=== PATIENT | female | born 1970 | race African-American/Black ===

== ENCOUNTER 2016-07-15 00:06 | Emergency (ER) | payer OTHER, MEDICAID ==
[~2016-07-15] VITALS: Ht 157.5 cm; Wt 63.0 kg
[~2016-07-15 00:06] MED LIST: ACET-3161 PO; DOCU-138 PO; FERR-63 PO; IBUP-779 PO; LABE200T28 PO; LOSA1TAB37 PO
[2016-07-15 00:15] VITALS: BP 120/67
== END 2016-07-15 03:10 | disposition left against medical advice (07) ==
LOC: ER 00:06
DX: R53.1 Weakness (principal); J45.909 Unspecified asthma, uncomplicated; I10 Essential (primary) hypertension; F17.200 Nicotine dependence, unspecified, uncomplicated; Z86.73 Personal history of transient ischemic attack (TIA), and cerebral infarction without residual deficits; Z98.890 Other specified postprocedural states

== ENCOUNTER 2016-08-08 17:22 | Emergency (ER) | payer OTHER, MEDICAID ==
[~2016-08-08] VITALS: Ht 167.6 cm; Wt 65.0 kg
[2016-08-08] MEDS ORDERED: IPRATROPIUM BROMIDE (0.02%) 0.5MG/2.5ML NEB HHN STA (17:48)
[2016-08-08] MEDS ORDERED: ALBUTEROL (0.083%) 2.5MG/3ML NEB HHN STA (17:48)
[2016-08-08] MEDS ORDERED: METHYLPREDNISOLONE SOD SUCC 125 MG/2 ML VIAL IV STA (17:48)
[2016-08-08] MEDS ORDERED: PIPERACILLIN/TAZ 3.375G PREMIX 50 ML IV ONE (18:00)
[2016-08-08] MEDS ORDERED: CLONIDINE 0.2MG TABLET PO ONE (18:00)
[2016-08-08] MEDS ORDERED: IPRATROPIUM/ALBUTEROL 0.5-3(2.5)MG/3ML NEB ONE (18:24)
[2016-08-08 18:28] LABS: BG CARBOXYHEMOGLOBIN 4.2 % (0.5-1.5); BG FRACTION INSPIRED OXYGEN 21; BG HCO3 ACT 22.5 mmol/L (22.0-26.0); BG METHEMOGLOBIN 0.4 % (0.0-1.5); BG OXYGEN SATURATION 94.8 % (92.0-98.5); BG OXYHEMOGLOBIN 90.4 % (94.0-97.0); BG PCO2 37.4 mmHg (35.0-45.0); BG PH 7.397 (7.350-7.450); BG PO2 82.1 mmHg (75.0-100.0); BG SAMPLE SITE RIGHT BRACHIAL; BG TOTAL HEMOGLOBIN 12.9 g/dL (12.0-18.0); BG VENT MODE ROOM AIR
[2016-08-08 18:38] LABS: *AMPHETAMINES SCREEN URINE NEGATIVE (NEGATIVE); *BARBITURATES SCREEN URINE NEGATIVE (NEGATIVE); *BENZODIAZEPINES SCREEN URINE NEGATIVE (NEGATIVE); *COCAINE SCREEN URINE NEGATIVE (NEGATIVE); CANNABINOID URINE SCREEN NEGATIVE (NEGATIVE); ECSTASY MDMA SCREEN URINE NEGATIVE (NEGATIVE); METHADONE URINE SCREEN NEGATIVE (NEGATIVE); OPIATES URINE SCREEN NEGATIVE (NEGATIVE); PHENCYCLIDINE URINE SCREEN NEGATIVE (NEGATIVE)
[2016-08-08 19:16] LABS: HEMOGLOBIN. 11.4 g/dL (12.0-16.0); MEAN CORPUSCULAR HEMOGLOBIN 26.1 pg (28.0-32.0); MEAN CORPUSCULAR HGB CONC 32.5 g/dL (31.0-37.0); MEAN CORPUSCULAR VOLUME 80.3 fL (81.0-99.0); MEAN PLATELET VOLUME 8.3 fl (7.4-10.4); PLATELET 247 x1000/uL (130-400); RED BLOOD CELL COUNT 4.36 mill/uL (4.2-5.4); RED CELL DISTRIBUTION WIDTH 15.7 % (11.6-14.6)
[2016-08-08 19:17] LABS: PARTIAL THROMBOPLASTIN TIME 28.9 sec (24.0-34.0); PROTHROMBIN TIME 10.5 sec
[2016-08-08 19:20] LABS: DIFFERENTIAL COMMENT 1
[2016-08-08 19:22] LABS: HCG SCREEN NEGATIVE
[2016-08-08 19:25] LABS: ALANINE AMINOTRANSFERASE 19 IU/L (13-61); ALBUMIN 4.1 g/dL (3.4-5.0); ANION GAP 18; CALCIUM 8.6 mg/dL (8.5-10.1); CARBON DIOXIDE 22 mEq/L (21-32); CHLORIDE 105 mEq/L (98-107); CREATINE KINASE 230 IU/L (26-192); ETHANOL BLOOD 292 mg/dL; INDEX HEMOLYSI 1 (1-3); INDEX ICTERIC 1 (1-4); INDEX LIPEMIC 1 (1-3); LIPASE 392 IU/L (73-393); NT PRO B-TYPE NATRIURETIC PEP 71 pg/mL (5-125); TROPONIN I < 0.02 ng/mL (0.00-0.04); UREA NITROGEN BLOOD 6 mg/dL (7-21); eGFR > 60 mL/min (>60)
[2016-08-08 19:31] LABS: THYROID STIMULATING HORMONE 0.51 uIU/mL (0.36-3.74)
[2016-08-08 20:21] LABS: PLATELET ESTIMATE NORMAL
[2016-08-08 21:55] VITALS: BP 127/85
== END 2016-08-08 22:01 | disposition home or self-care (01) ==
LOC: ER 17:24
DX: J20.9 Acute bronchitis, unspecified (principal); F10.10 Alcohol abuse, uncomplicated; I10 Essential (primary) hypertension; J45.909 Unspecified asthma, uncomplicated; F17.210 Nicotine dependence, cigarettes, uncomplicated; Z79.1 Long term (current) use of non-steroidal anti-inflammatories (NSAID); Z79.899 Other long term (current) drug therapy; Z82.49 Family history of ischemic heart disease and other diseases of the circulatory system
CPT/HCPCS: 36415; 36600; 71010; 80053; 80305; 82375; 82550; 82805; 83690; 83880; 84443; 84484; 84703; 85025; 85610; 85730; 87040; 93005; 94640; 96365; 96366; 96375; 99285; G0482; J2543; J2930; J7611; J7620

== ENCOUNTER 2018-02-11 02:10 | Emergency (ER) | payer OTHER, MEDICAID ==
[~2018-02-11] VITALS: Ht 157.5 cm; Wt 63.5 kg
[2018-02-11 02:12] VITALS: BP 131/86
== END 2018-02-11 03:20 | disposition left against medical advice (07) ==
LOC: ER 02:10
DX: Z53.21 Procedure and treatment not carried out due to patient leaving prior to being seen by health care provider (principal)

== ENCOUNTER 2018-02-11 03:55 | Emergency (ER) | payer OTHER, MEDICAID ==
[~2018-02-11] VITALS: Ht 157.5 cm; Wt 69.0 kg
[2018-02-11] MEDS ORDERED: DIPHENHYDRAMINE 25MG CAPSULE PO ONE (06:45)
[2018-02-11] MEDS ORDERED: DEXAMETHASONE 10 MG/ML VIAL IM ONE (06:45)
[2018-02-11] MEDS ORDERED: FAMOTIDINE 20MG TABLET PO ONE (06:45)
[2018-02-11 06:46] VITALS: BP 138/96
== END 2018-02-11 06:47 | disposition home or self-care (01) ==
LOC: ER 03:55
DX: S50.862A Insect bite (nonvenomous) of left forearm, initial encounter (principal); S50.861A Insect bite (nonvenomous) of right forearm, initial encounter; I10 Essential (primary) hypertension; F17.200 Nicotine dependence, unspecified, uncomplicated; Z86.73 Personal history of transient ischemic attack (TIA), and cerebral infarction without residual deficits; W57.XXXA Bitten or stung by nonvenomous insect and other nonvenomous arthropods, initial encounter; Y93.89 Activity, other specified; Y92.018 Other place in single-family (private) house as the place of occurrence of the external cause
CPT/HCPCS: 96372; 99283; J1100; Q0163

== ENCOUNTER 2019-01-12 03:11 | Emergency (ER) | payer MEDICARE, MEDICAID ==
[~2019-01-12] VITALS: Ht 167.6 cm; Wt 80.0 kg
[2019-01-12 04:30] VITALS: BP 142/96
== END 2019-01-12 04:43 | disposition home or self-care (01) ==
LOC: ER 03:11
DX: S50.862A Insect bite (nonvenomous) of left forearm, initial encounter (principal); W57.XXXA Bitten or stung by nonvenomous insect and other nonvenomous arthropods, initial encounter; Y93.89 Activity, other specified; Y92.89 Other specified places as the place of occurrence of the external cause; Y99.8 Other external cause status; I10 Essential (primary) hypertension; Z86.73 Personal history of transient ischemic attack (TIA), and cerebral infarction without residual deficits; Z98.890 Other specified postprocedural states; Z79.899 Other long term (current) drug therapy
CPT/HCPCS: 99283